=== PATIENT | male | born 1995 | race Caucasian/White ===

== ENCOUNTER 2022-09-25 08:00 | Outpatient (CLI) | payer OTHER ==
[2022-09-25 23:14] LABS: CHLAMYDIA TRACHOMATIS DNA NEGATIVE (NEGATIVE); NEISSERIA GONORRHOEAE DNA NEGATIVE (NEGATIVE)
== END 2022-09-25 23:59 | disposition home or self-care (01) ==
LOC: LAB.N 08:00
PROVIDERS: ATTEND Registered Nurse
DX: Z72.51 High risk heterosexual behavior (principal)
CPT/HCPCS: 87491; 87591; 87661

== ENCOUNTER 2022-10-05 20:12 | Outpatient (CLI) | payer OTHER | END 2022-10-05 20:13 | disposition home or self-care (01) | LOC: SC 20:12 | PROVIDERS: ATTEND Nurse Practitioner Family | DX: R06.83 Snoring (principal); G47.8 Other sleep disorders; R06.81 Apnea, not elsewhere classified; F32.A Depression, unspecified | CPT/HCPCS: 95810 ==

== ENCOUNTER 2022-11-23 14:48 | Outpatient (CLI) | payer OTHER ==
[2022-11-23 15:09] VITALS: BP 136/80
--- NOTE | 2022-11-23 15:09 | SLEEP CARE CONSULTATION ---
Information from patient questionnaire entered by Trish Pantoja. I have reviewed and concur with the information entered by Trish Pantoja. This document represents the service I personally performed and the decisions made by , Siobhan Arevalo ARNP. History of Present Illness Service Date and Time: 11/23/2022 144 Initial [place] Sleepiness Scale score: 8 (08/13/22) Current [place] Sleepiness Scale score: 6 (11/23/22) Additional HPI information: MIKAYLA MCCLURE returns for follow up and results of the recently performed polysomnography. The patient was informed of the following findings: No significant sleep disordered breathing with an average AHI 3.6 of his and juanjo oxygen saturation of 86%. I explained the pathophysiology behind obstructive sleep apnea. Patient does not have sleep apnea and was advised how weight gain could increase the risk of developing sleep apnea in the future. I strongly encouraged the patient to lose weight. Patient has light snoring. Snoring can be reduced by weight loss. Weight loss is best achieved with diet consult. Patient instructed to contact PCP for referral. Snoring can also be treated with an oral appliance from a dentist. Advised to check insurance coverage. In addition, an ENT evaluation can be do to see if other treatment is indicated. Patient does not drink alcohol. Patient was cautioned about risks of drowsy driving until sleepiness symptoms resolve. Patient denies drowsy driving. Sleep Study - Results Type of Sleep Study: Polysomnography (COMPLETED 10-05-22) Prior sleep studies: No Polysomnography/Home Sleep Study results: IMPRESSION: The quality of the study is good. The patient had normal sleep efficiency. The sleep architecture was normal as well. Respiratory monitoring showed no significant sleep disordered breathing (AHI = 3.6) or hypoxia (juanjo oxygen saturation of 86%). The few respiratory events occurred mainly during supine sleep (supine AHI = 4.0; non-supine = 0.97). Snore was infrequent and light in intensity. There was no significant periodic leg movement of sleep. Cardiac rhythm was normal sinus rhythm without significant arrhythmia. No abnormal behavior (parasomnia) observed during the night. Allergies and Home Medications Drug allergies reviewed: Yes (NKDA) Home medication list reviewed: Yes (no changes) Review of Systems Review of systems same as previous: Yes (no changes) Physical Exam Vital signs obtained and entered by: TRISH Magana MA Blood Pressure: 136/80 (LEFT ARM) Cuff size: regular Heart Rate: 72 O2 Saturation: 98 Height: 5 ft 9 in Weight: 217 lb Body Mass Index: 32.0 BMI Classification: Obese Impression and Plan 1. Snoring but no significant sleep disordered breathing. Patient advised that often weight loss will reduce snoring as well as apnea risk. An oral appliance can also be used for snoring. This would require a dental consultation. Patient cautioned not to use other online appliances as can cause bite issues. A list of accredited dentists in [facility] and one local dentist who makes oral appliances is available in office. Patient is advised to check if insurance will cover. An ENT consult can also be helpful to determine if any other treatment is an option. * Attempt to lose weight * The patient is cautioned about driving until sleepiness is completely resolved. * Return as needed for follow up. Counseling Topics: Weight loss health impact Visit Type: In Office Time Spent with Patient (minutes): 10 Provider Statement: I spent 100% of the Face to Face Visit with the patient with greater than 50% spent counseling the patient and coordination of care.
== END 2022-11-23 14:49 | disposition home or self-care (01) ==
LOC: SC 14:48
PROVIDERS: ATTEND Nurse Practitioner Family
DX: R06.83 Snoring (principal); E66.9 Obesity, unspecified; Z68.32 Body mass index [BMI] 32.0-32.9, adult
CPT/HCPCS: 99212

== ENCOUNTER 2024-02-20 08:00 | Outpatient (CLI) | payer OTHER ==
[2024-02-20 22:57] LABS: CHLAMYDIA TRACHOMATIS DNA NEGATIVE (NEGATIVE); NEISSERIA GONORRHOEAE DNA NEGATIVE (NEGATIVE); TRICHOMONAS VAGINALIS DNA NEGATIVE (NEGATIVE)
== END 2024-02-20 23:59 | disposition home or self-care (01) ==
LOC: LAB.N 08:00
PROVIDERS: ATTEND Family Medicine
DX: Z72.51 High risk heterosexual behavior (principal)
CPT/HCPCS: 87491; 87591; 87661

== ENCOUNTER 2024-03-12 08:00 | Outpatient (CLI) | payer OTHER ==
[2024-03-13 02:34] LABS: CHLAMYDIA TRACHOMATIS DNA NEGATIVE (NEGATIVE); NEISSERIA GONORRHOEAE DNA NEGATIVE (NEGATIVE); TRICHOMONAS VAGINALIS DNA NEGATIVE (NEGATIVE)
[2024-03-14 03:13] LABS: HIV SCREEN 4TH GENERATION Non Reactive (Non Reactive)
[2024-03-14 04:09] LABS: RPR Non Reactive (Non Reactive)
[2024-03-14 08:11] LABS: HSV 2 IGG TYPE SPEC <0.91 index (0.00-0.90)
== END 2024-03-12 23:59 | disposition home or self-care (01) ==
LOC: LAB.N 08:00
PROVIDERS: ATTEND Physician Assistant
DX: Z72.51 High risk heterosexual behavior (principal)
CPT/HCPCS: 36415; 81599; 86592; 86695; 86696; 86803; 87389; 87491; 87591; 87661

== ENCOUNTER 2024-07-06 08:01 | Outpatient (CLI) | payer OTHER ==
--- NOTE | 2024-07-08 03:58 | MRI Report ---
PROCEDURE: Lumbar Spine WO INDICATIONS: LOW BACK PAIN TECHNIQUE: Noncontrast sagittal T1 spin echo and T2 fast echo, sagittal STIR, axial T1 and T2 fast spin echo thr ough the lumbar spine. In cases with scoliosis, additional coronal T2 fast spin echo may be performe d. COMPARISON: None. FINDINGS: Image quality: Excellent. Alignment and Curvature: There is normal bony alignment. Bone Marrow: Marrow is of normal overall signal. No acute vertebral body compression fractures. Spinal Cord: Conus medullaris terminates at the T12-L1 level. Visualized cord demonstrates normal s ignal and size. Paraspinous Soft Tissues: No paravertebral masses. T12-L1: Normal in appearance. L1-L2: Normal in appearance. L2-3: Normal in appearance. L3-4: There is mild diffuse disc bulge and bilateral facet arthrosis causing mild central canal st enosis and bilateral neural foraminal narrowing. L4-5: Broad-based disc bulge and bilateral facet process is seen with mild central canal stenosis, mild to moderate left-sided neural foraminal narrowing and mild right-sided neural foraminal narrowin g. L5-S1: Normal in appearance. IMPRESSION: 1. Spondylitic changes at L3-4 and L4-5 levels causing various degrees of central canal stenosis and bilateral neural foraminal narrowing as described above. 2. No marrow edema. No acute compression fracture or spondylolisthesis. No gross paraspinous soft tis mattie abnormalities. Reviewed by: Eddie Leger MD on 07/08/2024 3:57 AM PDT Approved by: Eddie Leger MD on 07/08/2024 3:57 AM PDT Station ID: [id number]
== END 2024-07-06 08:02 | disposition home or self-care (01) ==
LOC: DI 08:01
PROVIDERS: ATTEND Nurse Practitioner Family
DX: M51.36 Other intervertebral disc degeneration, lumbar region (principal); M48.061 Spinal stenosis, lumbar region without neurogenic claudication; M47.816 Spondylosis without myelopathy or radiculopathy, lumbar region